=== PATIENT | female | born 1990 | race American Indian/Alaskan Native ===

== ENCOUNTER 2018-10-13 07:12 | Inpatient (IN) | payer MEDICAID ==
[2018-10-11 10:57] LABS: Hematocrit 24.7 % (30.3-42.9); Hemoglobin 7.6 gm/dl (10.1-14.3); Mean Corpuscular HGB Conc 31 % (30-34); Mean Corpuscular Volume 77 fl (79-97); Red Blood Count 3.22 M/mm3 (3.65-5.03)
[2018-10-11 11:05] LABS: Red Cell Distribution Width 28.2 % (13.2-15.2)
--- NOTE | 2018-10-11 11:07 | Anesthesia Consultation ---
Anesthesia Consult and Med Hx Date of service: 10/11/18 - Airway Anesthetic Teeth Evaluation: Good ROM Head & Neck: Adequate Mental/Hyoid Distance: Inadequate Mallampati Class: Class II Intubation Access Assessment: Good - Pulmonary Exam CTA: Yes - Cardiac Exam Cardiac Exam: RRR - Pre-Operative Health Status ASA Pre-Surgery Classification: ASA1 Proposed Anesthetic Plan: General Nerve Block: TAP - Pulmonary Hx Smoking: Yes - Central Nervous System Hx Psychiatric Problems: No - Hematic Hx Anemia: Yes - Other Systems Hx Alcohol Use: Yes (Occas) Hx Cancer: No
[2018-10-11 13:49] LABS: Basophils % (Manual) 0 % (0.0-1.8); Total Cells Counted 100
[2018-10-11 13:50] LABS: Anisocytosis 3+; Dimorphic RBC Yes; Hypochromasia 1+
[2018-10-11 13:51] LABS: Platelet Estimate Consistent w Auto
[2018-10-11 14:01] LABS: Platelet Count 155 K/mm3 (140-440)
[2018-10-13] MEDS ORDERED: NACL 0.9% 500 ML 500 ML IV NR (09:41)
--- NOTE | 2018-10-13 09:41 | History and Physical Report ---
History of Present Illness Date of examination: 10/13/18 Date of admission: 10/13/18 09:06 Chief complaint: Symptomatic uterine fibroids History of present illness: 27-year-old 011 with a history of symptomatic uterine fibroids. The patient reports a history of abnormal uterine bleeding with significant pain and discomfort during her menses. Pelvic ultrasound has demonstrated findings of a fundal leiomyoma measuring 9.1 cm. The patient desires to preserve her fertility. She has elected to undergo a myomectomy. 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 Social history: single - Obstetrical History : 2 Para: 1 Hx # Term Pregnancies: 1 Number of Pregnancies: 0 Spontaneous Abortions: 1 Induced : 0 Number of Living Children: 1 Medications and Allergies Allergies Allergy/AdvReac Type Severity Reaction Status Date / Time Sulfa (Sulfonamide Allergy Unknown Verified 10/08/18 12:14 Antibiotics) Home Medications Medication Instructions Recorded Confirmed Last Taken Type medroxyPROGESTERone ACETATE 10 mg PO DAILY 10/08/18 10/08/18 Unknown History [Medroxyprogesterone Acetate] Review of Systems All systems: negative Genitourinary: vaginal bleeding, pelvic pain - Vital Signs Vital signs: Vital Signs Temp Pulse Resp BP Pulse Ox 99 F 96 H 18 132/88 100 10/11/18 09:45 10/11/18 09:45 10/11/18 09:45 10/11/18 09:45 10/11/18 09:45 Temp Pulse Resp BP Pulse Ox 99 F 96 H 18 132/88 100 10/11/18 09:45 10/11/18 09:45 10/11/18 09:45 10/11/18 09:45 10/11/18 09:45 - Physical Exam Breasts: Positive: deferred Cardiovascular: Regular rate Lungs: Positive: Clear to auscultation Results Result Diagrams: 10/11/18 10:23 All other labs normal. Assessment and Plan - Patient Problems (1) Leiomyoma Current Visit: Yes Status: Acute Plan to address problem: Proceed with an exploratory laparotomy and myomectomy (2) Menorrhagia Current Visit: Yes Status: Acute (3) Dysmenorrhea Current Visit: Yes Status: Acute
[2018-10-13] MEDS ORDERED: SUBLIMAZE IV NR (09:47)
[2018-10-13] MEDS ORDERED: ZOFRAN IV PRN (09:47)
[2018-10-13] MEDS ORDERED: SUBLIMAZE IV PRN (09:47)
[2018-10-13] MEDS ORDERED: TYLENOL PO NR ×2 (09:50→11:00)
--- NOTE | 2018-10-13 09:52 | Anesthesia Day of Surgery ---
Anesthesia Day of Surgery - Day of Surgery Patient Examined: Yes Patient H&P Reviewed: Yes Patient is NPO: Yes
[2018-10-13] MEDS ORDERED: VERSED IV NR (10:00)
[2018-10-13] MEDS ORDERED: LACTATED RINGERS 1,000 ML IV SCH (10:00)
[2018-10-13] MEDS ORDERED: ANCEF/STERILE WATER 2 GM/20 ML 2 GM/20 ML SYRINGE IV NR (10:00)
[2018-10-13] MEDS ORDERED: NEURONTIN PO NR ×2 (10:00→11:00)
[2018-10-13] MEDS ORDERED: NEURONTIN ONE (10:33)
[2018-10-13] MEDS ORDERED: TYLENOL ONE (10:34)
[2018-10-13] MEDS ORDERED: ACD-A 500 ML IV ONE (12:41)
[2018-10-13] MEDS ORDERED: NACL 0.9% 100 ML ONE (12:42)
[2018-10-13] MEDS ORDERED: Vasostrict ONE (12:42)
[2018-10-13] MEDS ORDERED: VERSED ONE (13:01)
[2018-10-13] MEDS ORDERED: DIPRIVAN 10 MG/ML IV ONE (13:05)
[2018-10-13] MEDS ORDERED: SUBLIMAZE ONE ×3 (13:06→14:54)
[2018-10-13] MEDS ORDERED: XYLOCAINE MPF 2% ONE (13:51)
[2018-10-13] MEDS ORDERED: ZEMURON IV ONE (13:51)
[2018-10-13] MEDS ORDERED: BLOXIVERZ ONE (13:51)
[2018-10-13] MEDS ORDERED: ZOFRAN ONE (13:51)
[2018-10-13] MEDS ORDERED: DECADRON ONE (13:51)
[2018-10-13] MEDS ORDERED: ROBINUL ONE (13:51)
[2018-10-13] MEDS ORDERED: NACL 0.9% IR ONE (13:59)
[2018-10-13] MEDS ORDERED: Vasostrict IM ONE (13:59)
[2018-10-13] MEDS ORDERED: ACD-A IV ONE (13:59)
[2018-10-13] MEDS ORDERED: NACL 0.9% IV ONE (14:00)
--- NOTE | 2018-10-13 14:45 | Operative Report ---
Operative Report Operative Report: Date of procedure: 10/13/2018 Pre-operative diagnosis: Symptomatic uterine fibroid; menorrhagia; anemia Post-operative diagnosis: Same as above Procedure name(s): Exploratory laparotomy; myomectomy Surgeon: Edyta Bell MD Train Gate Attendant: Ronit Rubio Anesthesia: Gen. Endotracheal anesthesia Estimated blood loss: 150 mL Indication: 27-year-old with a history of significant menorrhagia as a result a Dawson a myoma. The patient's anemia subsequently led her to having a transfusion of blood products. The patient received 2 units of packed red blood cells preoperatively. Findings Fibroid uterus with a solitary leiomyoma measuring approximately 9 cm Procedure The patient was taken to the operating room and placed under general anesthesia without complication. The patient was prepped and draped in a normal sterile fashion. A Pfannenstiel skin incision was made down to the layer of the fascia was nicked in the midline and extended laterally with the Bovie cautery. The superior aspect of the rectus fascia was grasped Kocur clamps 2 and the rectus muscles off sharply. This was done inferior fashion as well. Rectus muscle in the midline and the peritoneal peritoneum entered bluntly. On inspection of the pelvis there was evidence of an enlarged uterus significant with findings of a leiomyoma. The tubes and ovaries were normal in appearance. Towel clamp was placed on the leiomyoma and the uterus was elevated out of the pelvis. Warm laparotomy sponges were placed along the base of the uterus. The leiomyoma was injected with diluted Pitressin. A vertical serosal incision was made on the anterior aspect of the uterus from the fundus to the lower uterine segment. The leiomyoma was grasped with a towel clamp. The myometrium and connective tissue were excised from the leiomyoma with blunt and sharp dissection. The leiomyoma was then removed from the uterine body. The cavitary defect was closed with 0 Vicryl suture in a running locked fashion. Multiple layers reapproximated until the myometrial defect was collapsed. The serosa was reapproximated in a running locked fashion with 0 Vicryl. Copious irrigation of pelvis was performed. The uterus was replaced back into the pelvis. Hemoblast was applied to the surgical site. The peritoneum was then reapproximated with 3-0 Vicryl in a running fashion. The fascia was then closed in a running fashion with 0 Vicryl. The skin was reapproximated with 4-0 Monocryl in a subcuticular fashion. All sponge laps and needle counts were correct 2. Specimen sent to pathology was leiomyoma. Patient was then successfully extubated taken to the recovery room in stable condition.
[2018-10-13] MEDS ORDERED: TYLENOL PO PRN (15:00)
[2018-10-13] MEDS ORDERED: MILK OF MAGNESIA PO PRN (15:00)
[2018-10-13] MEDS ORDERED: IBUPROFEN PO PRN (15:00)
[2018-10-13] MEDS: DILAUDID IV PRN ×4 (15:10→15:55)
[2018-10-13] MEDS ORDERED: VALIUM IV ONE (15:29)
[2018-10-13] MEDS: D5LR 1,000 ML IV SCH (17:21)
[2018-10-13] MEDS: TORADOL IV SCH (18:32)
[2018-10-13] MEDS ORDERED: NACL 0.9% 500 ML 500 ML ONE (19:02)
--- NOTE | 2018-10-13 19:07 | Post Anesthesia Evaluation ---
- Post Anesthesia Evaluation Patient Participated: Yes Airway Patent: Yes Stable Respiratory Function: Yes Nausea/Vomiting: No Temp > 96.8F: Yes Pain Manageable: Yes Adequeate Hydration: Yes Anesthesia Complications: No Block Receding Appropriately: Not Applicable Patient on Ventilator: No
[2018-10-13] MEDS: MORPHINE IV PRN (19:14)
[2018-10-13] MEDS: PERCOCET 5/325 PO PRN (21:30)
[2018-10-13] MEDS ORDERED: AMBIEN PO PRN (22:00)
[2018-10-14] MEDS: TORADOL IV SCH ×5 (00:22→23:58)
[2018-10-14] MEDS: D5LR 1,000 ML IV SCH (04:08)
[2018-10-14 04:29] LABS: Hemoglobin 9.4 gm/dl (10.1-14.3)
[2018-10-14] MEDS: MORPHINE IV PRN (04:32)
--- NOTE | 2018-10-14 08:21 | Progress Note ---
Assessment and Plan - Patient Problems (1) Leiomyoma Current Visit: Yes Status: Acute Plan to address problem: patient doing well routine postop (2) Menorrhagia Current Visit: Yes Status: Acute (3) Dysmenorrhea Current Visit: Yes Status: Acute Subjective - Subjective Date of service: 10/14/18 Interval history: Patient is tolerating clears. Discussed details of surgery. Has not ambulated yet Patient reports: pain well controlled, no flatus Objective - Vital Signs Latest vital signs: Vital Signs Temp Pulse Resp BP Pulse Ox 10/14/18 04:51 97.9 F 82 151/81 99 10/14/18 04:45 20 10/13/18 23:27 83 99 10/13/18 23:26 97.8 F 88 20 158/98 98 10/13/18 20:40 98.1 F 89 18 160/90 99 10/13/18 20:35 98.1 F 79 18 160/93 100 10/13/18 20:07 98.5 F 80 18 156/88 100 10/13/18 19:37 99.1 F 83 18 159/84 99 10/13/18 19:28 98.5 F 88 18 173/92 100 10/13/18 19:22 98.2 F 83 18 143/83 10/13/18 18:55 98.2 F 100 H 20 143/83 100 10/13/18 16:39 97.8 F 20 153/56 10/13/18 16:00 70 16 125/56 99 10/13/18 15:45 97.5 F L 77 16 128/61 100 10/13/18 15:30 78 20 126/58 100 10/13/18 15:15 85 20 139/70 100 10/13/18 15:05 86 22 137/55 100 10/13/18 15:00 81 20 127/49 100 10/13/18 14:56 97.6 F 95 H 20 128/63 100 10/13/18 14:13 18 10/13/18 12:35 99.3 F 101 H 20 142/101 100 10/13/18 12:20 91 H 18 149/88 98 10/13/18 12:00 93 H 18 146/75 99 10/13/18 10:30 18 10/13/18 09:45 98.3 F 87 20 151/81 99 10/13/18 09:25 98.3 F 87 18 151/81 99 Intake and Output 10/13/18 10/14/18 10/14/18 22:59 06:59 14:59 Intake Total 620 1360 Output Total 380 875 Balance 240 485 Intake: IV 1000 D5lr 1,000 ml @ 125 mls/ 1000 hr IV DIRECT KAISRE Rx#: [id number] Oral 120 360 Blood Product 500 Leukoreduced Red Blood 250 Cells Unit [id number] Leukoreduced Red Blood 250 Cells Unit [id number] Output: Urine 380 875 Indwelling Catheter 200 875 Other: Total, Intake Amount 120 120 Total, Output Amount 200 75 - Exam Cardiovascular: Present: Regular rate Abdomen: Present: normal appearance Incision: Present: normal, dry - Labs Labs: Abnormal lab results 10/13/18 10/14/18 Range/Units 10:08 04:20 Hgb 9.4 L (10.1-14.3) gm/dl Hct 30.0 L (30.3-42.9) % Crossmatch See Detail
[2018-10-14] MEDS: PERCOCET 5/325 PO PRN ×3 (08:36→21:57)
[2018-10-14] MEDS ORDERED: MYLICON PO PRN (12:06)
[2018-10-15] MEDS: TORADOL IV SCH ×2 (03:14→09:01)
[2018-10-15] MEDS ORDERED: ZOFRAN IV ONE (03:30)
[2018-10-15 09:22] VITALS: BP 146/78
--- NOTE | 2018-10-15 10:28 | Progress Note ---
Assessment and Plan - Patient Problems (1) Leiomyoma Current Visit: Yes Status: Acute Plan to address problem: patient doing well discharge home (2) Menorrhagia Current Visit: Yes Status: Acute (3) Dysmenorrhea Current Visit: Yes Status: Acute Subjective - Subjective Date of service: 10/15/18 Interval history: Patient is tolerating regular diet. Pain is better controlled Patient reports: appetite normal, voiding normally, pain well controlled Objective - Vital Signs Latest vital signs: Vital Signs Temp Pulse Pulse Resp BP Pulse Ox 10/15/18 07:56 97.6 F 83 16 146/78 98 10/15/18 04:43 98.5 F 76 20 149/67 97 10/15/18 03:44 18 10/15/18 03:14 18 10/14/18 23:58 18 10/14/18 23:41 98.5 F 76 20 127/59 99 10/14/18 22:57 18 10/14/18 21:57 18 10/14/18 20:03 98.5 F 79 20 169/70 97 10/14/18 20:00 85 18 10/14/18 15:54 97.9 F 97 H 16 157/76 100 10/14/18 12:06 97.7 F 77 20 147/73 96 Intake and Output 10/14/18 10/15/18 10/15/18 22:59 06:59 14:59 Intake Total 320 Output Total 500 Balance -180 Intake: Oral 320 Output: Urine 500 Void 500 Other: Total, Intake Amount 120 Total, Output Amount 500 Voiding Method Toilet Toilet # Voids 1 Void 1 1 Weight 81.64 kg - Exam Incision: Present: normal
--- NOTE | 2018-10-15 10:30 | Discharge Summary ---
Providers - Providers Date of Admission: 10/13/18 09:06 Date of discharge: 10/15/18 Attending physician: MICHAEL UNGER Primary care physician: [employer] Hospitalization Reason for admission: other (uterine fibroid) Procedure: other (myomectomy) Discharge diagnosis: other (fibroids) Hospital course: Patient admitted for a myomectomy. Received 2 units prbcs preop. See op note. Postop was routine Condition at discharge: Good Disposition: [id number] TO HOME OR SELFCARE - Discharge Diagnoses (1) Leiomyoma Status: Acute (2) Menorrhagia Status: Acute (3) Dysmenorrhea Status: Acute Plan - Discharge Medications Prescriptions: Ibuprofen [Motrin] 800 mg PO Q8HR PRN #60 tablet PRN Reason: Pain, Mild (1-3) Oxycodone HCl/Acetaminophen [Percocet 7.5/325 mg] 1 each PO Q6HR PRN #30 tablet PRN Reason: Pain - Provider Discharge Summary Activity: no sex for 6 weeks, no heavy lifting 4 weeks, no strenuous exercise Diet: routine Instructions: routine Additional instructions: [] Smoking cessation referral if applicable(refer to patient education folder for contact #) [] Refer to [facility]'s [facility] Booklet Call your doctor immediately for: * Fever > 100.5 * Heavy vaginal bleeding ( >1 pad per hour) * Severe persistent headache * Shortness of breath * Reddened, hot, painful area to leg or breast * Drainage or odor from incision. * Keep incision clean and dry at all times and follow doctor's instructions regarding bathing/showering schedule followup in 4 weeks - Follow up plan
== END 2018-10-15 11:25 | disposition home or self-care (01) | DRG 743 ==
LOC: 3A 09:06 → OB 15:24
PROVIDERS: ADMIT Obstetrics & Gynecology; ATTEND Obstetrics & Gynecology
PROC: 0UB90ZZ Excision of Uterus, Open Approach (ICD-10-PCS; principal; 2018-10-13)
PROC: 30233N1 Transfusion of Nonautologous Red Blood Cells into Peripheral Vein, Percutaneous Approach (ICD-10-PCS; 2018-10-13)
DX: D25.9 Leiomyoma of uterus, unspecified (principal); N92.0 Excessive and frequent menstruation with regular cycle; N94.6 Dysmenorrhea, unspecified; F17.200 Nicotine dependence, unspecified, uncomplicated; D64.9 Anemia, unspecified; Z88.2 Allergy status to sulfonamides; Z79.899 Other long term (current) drug therapy; Z72.89 Other problems related to lifestyle
CPT/HCPCS: 36415; 36430; 81025; 85007; 85014; 85018; 85025; 86850; 86900; 86901; 86920; 88305; G0378; J0690; J1100; J1170; J1885; J2250; J2270; J2405; J2704; J2710; J3010; J3360; J7040; J7120; J7121; P9016

== ENCOUNTER 2020-08-29 11:15 | Outpatient (CLI) | payer MEDICAID ==
[2020-08-29] MEDS ORDERED: LACTATED RINGERS 1,000 ML IV ONE (11:25)
[2020-08-29 11:45] VITALS: BP 137/80
[2020-08-29 13:21] LABS: Bilirubin,Urine NEG (Negative); Blood,Urine LG (Negative); Color,Urine Yellow (Yellow); Mucus,Urine 1+ /HPF; Urobilinogen,Urine < 2.0 mg/dL (<2.0)
== END 2020-08-29 12:57 | disposition home or self-care (01) ==
LOC: TRG 11:15 → APU 11:16 → TRG 12:57
PROVIDERS: ATTEND Obstetrics & Gynecology
DX: Z34.92 Encounter for supervision of normal pregnancy, unspecified, second trimester (principal); Z3A.26 26 weeks gestation of pregnancy
CPT/HCPCS: 59025; 81001

== ENCOUNTER 2020-10-15 07:15 | Outpatient (CLI) | payer MEDICAID ==
[2020-10-15 07:44] VITALS: BP 128/64
[2020-10-15 10:32] LABS: Bacteria,Urine 2+ /HPF (Negative); Bilirubin,Urine NEG (Negative); Blood,Urine NEG (Negative); Color,Urine Yellow (Yellow); Mucus,Urine FEW /HPF; Protein,Urine <15 mg/dL mg/dL (Negative); Urobilinogen,Urine < 2.0 mg/dL (<2.0)
[2020-10-15] MEDS ORDERED: TERBUTALINE 1 MG/1 ML INJ SUB-Q SCH (11:00)
== END 2020-10-15 11:15 | disposition home or self-care (01) ==
LOC: TRG 07:15 → APU 07:16 → TRG 11:15
PROVIDERS: ATTEND Obstetrics & Gynecology
DX: Z34.93 Encounter for supervision of normal pregnancy, unspecified, third trimester (principal); Z3A.33 33 weeks gestation of pregnancy
CPT/HCPCS: 59025; 81001

== ENCOUNTER 2020-11-16 11:30 | Inpatient (IN) | payer MEDICAID ==
[2020-11-23] MEDS ORDERED: dexAMETHasone 20 MG/5 ML VIAL ONE (09:57)
[2020-11-23] MEDS ORDERED: BUPIVACAINE/PF (0.5%) 5 MG/1 ML 30 ML VIAL INFILTRATI ONE (09:57)
[2020-11-23] MEDS ORDERED: KETOROLAC 30 MG/1 ML INJ ONE (09:57)
[2020-11-23] MEDS ORDERED: diphenhydrAMINE 50 MG/ML VIAL IV PRN (10:00)
[2020-11-23] MEDS ORDERED: HYDROmorphone 1 MG/1 ML INJ IV PRN (10:00)
[2020-11-23] MEDS ORDERED: PROMETHAZINE 25 MG RECT SUPP PR PRN (10:00)
[2020-11-23] MEDS ORDERED: NalbUPHINE 10 MG/1 ML INJ IV PRN (10:00)
[2020-11-23] MEDS ORDERED: PROMETHAZINE 25 MG TAB PO PRN (10:00)
[2020-11-23] MEDS ORDERED: NALOXONE 0.4 MG/1 ML INJ IV PRN ×2 (10:00→16:03)
[2020-11-23] MEDS ORDERED: ONDANSETRON 4 MG/2 ML INJ IV PRN (10:00)
[2020-11-23] MEDS ORDERED: LACTATED RINGERS 1,000 ML ONE ×3 (10:43→14:36)
[2020-11-23] MEDS ORDERED: LACTATED RINGERS 1,000 ML IV ONE ×3 (11:15→15:13)
[2020-11-23] MEDS ORDERED: FAMOTIDINE 20 MG/2 ML INJ IV ONE (11:15)
[2020-11-23] MEDS ORDERED: METOCLOPRAMIDE 10 MG/2 ML INJ IV ONE (11:15)
[2020-11-23] MEDS ORDERED: BICITRA ORAL LIQD 30ML PO ONE (11:30)
[2020-11-23 11:36] LABS: Basophils % (Auto) 0.2 % (0.0-1.8); Eosinophils % (Auto) 0.3 % (0.0-4.3); Hematocrit 37.5 % (30.3-42.9); Hemoglobin 12.3 gm/dl (10.1-14.3); Lymphocytes # (Auto) 1.4 K/mm3 (1.2-5.4); Lymphocytes % (Auto) 18.5 % (13.4-35.0); Mean Corpuscular HGB Conc 33 % (30-34); Mean Corpuscular Volume 82 fl (79-97); Monocytes # (Auto) 0.5 K/mm3 (0.0-0.8); Platelet Count 304 K/mm3 (140-440); Red Blood Count 4.58 M/mm3 (3.65-5.03); Red Cell Distribution Width 16.9 % (13.2-15.2)
--- NOTE | 2020-11-23 12:04 | History and Physical Report ---
History of Present Illness Date of examination: 11/23/20 Date of admission: 11/23/20 09:33 Chief complaint: Schedule History of present illness: 29-year-old -0-1-1 at 38+5 weeks who presents for primary delivery secondary to history of a prior myomectomy with entry into the uterine cavity. Recommended delivery prior to 39 weeks. The patient initiated her care in the first trimester of her . Her course is complicated by history of a prior myomectomy, large for gestational age fetus, obesity, and severe anxiety. Patient is GBS positive Past History Past Medical History: other (Anxiety) Past Surgical History: myomectomy Social history: single - Obstetrical History Expected Date of Delivery: 12/02/20 Actual Gestation: 38 Week(s) 5 Day(s) : 3 Para: 1 Hx # Term Pregnancies: 1 Number of Pregnancies: 0 Spontaneous Abortions: 1 Induced : 0 Number of Living Children: 1 Medications and Allergies Allergies Allergy/AdvReac Type Severity Reaction Status Date / Time Sulfa (Sulfonamide Allergy Unknown Verified 10/08/18 12:14 Antibiotics) Home Medications Medication Instructions Recorded Confirmed Last Taken Type [facility] Vitamins Tablet 1 tab PO DAILY 11/23/20 11/23/20 11/21/20 History 1 Active Meds: Active Medications Diphenhydramine HCl (Diphenhydramine 50 Mg/Ml Vial) 12.5 mg IV Q2H PRN PRN Reason: Itching Hydromorphone HCl (Hydromorphone 1 Mg/1 Ml Inj) 0.5 mg IV Q4H PRN PRN Reason: breakthrough pain > 7/10 Lactated Ringer's (Lactated Ringers) 1,000 mls @ 999 mls/hr IV BOLUS ONE Stop: 11/23/20 12:15 Nalbuphine HCl (Nalbuphine 10 Mg/1 Ml Inj) 2.5 mg IV Q2H PRN PRN Reason: Itching Naloxone HCl (Naloxone 0.4 Mg/1 Ml Inj) 0.2 mg IV Q2MIN PRN PRN Reason: Res Rate </= 8 or 02 SAT < 92% Ondansetron HCl (Ondansetron 4 Mg/2 Ml Inj) 4 mg IV Q8H PRN PRN Reason: Nausea And Vomiting Promethazine HCl (Promethazine 25 Mg Tab) 25 mg PO Q6H PRN PRN Reason: Nausea And Vomiting Promethazine HCl (Promethazine 25 Mg Rect Supp) 25 mg MO Q6H PRN PRN Reason: Nausea And Vomiting Review of Systems All systems: negative Genitourinary: no leakage of fluid, no contractions - Vital Signs Vital signs: Vital Signs Pulse Pulse Ox 92 H 98 11/23/20 10:17 11/23/20 10:17 Temp Pulse Resp BP Pulse Ox 98.2 F 103 H 18 144/86 99 11/23/20 11:22 11/23/20 11:42 11/23/20 11:22 11/23/20 11:00 11/23/20 11:42 - Physical Exam Breasts: Positive: deferred Cardiovascular: Regular rate Lungs: Positive: Clear to auscultation Abdomen: Positive: normal appearance Results Result Diagrams: 11/23/20 10:30 Abnormal lab results 11/23/20 Range/Units 10:30 MCH 27 L (28-32) pg RDW 16.9 H (13.2-15.2) % Seg Neutrophils % 74.0 H (40.0-70.0) % All other labs normal. Assessment and Plan - Patient Problems (1) History of myomectomy Current Visit: Yes Status: Acute Plan to address problem: Will proceed with a primary delivery
[2020-11-23] MEDS ORDERED: PHENYLEPHRINE/NS 1,000 MCG/10 ML SYRINGE (OR USE) IV ONE (12:10)
--- NOTE | 2020-11-23 12:35 | Anesthesia Day of Surgery ---
Anesthesia Day of Surgery - Day of Surgery Patient Examined: Yes Patient H&P Reviewed: Yes Patient is NPO: Yes Beta Blockers: No Cardiac Clearance: No Pulmonary Clearance: No Davion's Test: N/A
--- NOTE | 2020-11-23 12:36 | Anesthesia Consultation ---
Anesthesia Consult and Med Hx Date of service: 11/23/20 - Airway Anesthetic Teeth Evaluation: Good ROM Head & Neck: Adequate Mental/Hyoid Distance: Adequate Mallampati Class: Class III Intubation Access Assessment: Possibly Difficult - Pulmonary Exam CTA: Yes - Cardiac Exam Cardiac Exam: RRR - Pre-Operative Health Status ASA Pre-Surgery Classification: ASA2 Proposed Anesthetic Plan: Spinal Nerve Block: TAP - Pulmonary Hx Smoking: Yes Hx Asthma: No COPD: No Hx Pneumonia: No Hx Sleep Apnea: No - Cardiovascular System Hx Hypertension: No Hx Heart Attack/AMI: No Hx Angina: No - Central Nervous System Hx Seizures: No Hx Psychiatric Problems: No - Endocrine Hx Renal Disease: No Hx End Stage Renal Disease: No Hx Liver Disease: No Hx Insulin Dependent Diabetes: No Hx Non-Insulin Dependent Diabetes: No Hx Hypothyroidism: No Hx Hyperthyroidism: No - Hematic Hx Anemia: No Hx Sickle Cell Disease: No - Other Systems Hx Alcohol Use: No Hx Cancer: No Hx Obesity: Yes - Additional Comments Anesthesia Medical History Comments: H/O myomectomy
--- NOTE | 2020-11-23 12:41 | Progress Note ---
Spinal Anesthesia Block - Spinal Anesthesia Block Start Time: 12:03 Stop Time: 12:08 Performed by:: CORTES SAWYER ([facility]) Procedure: Spinal anesthesia block is being performed for [C/S]. H&P, labs have been reviewed. Patient's questions and concerns have been answered. Informed consent has been performed. Timeout has was performed. Patient in sitting position on side of bed. Sterile prep and drape was performed. 3 mL 1% lid ocaine skin wheal at L [3]-L [4]. Needle introducer advanced. 25-gauge spinal needle advanced, [+] CSF [-] blood. [Marcaine 10mg and Precedex 5mcg] Spinal dose was given. All needles removed. Patient tolerated procedure well.
[2020-11-23] MEDS ORDERED: MIDAZOLAM 2 MG/2 ML INJ ONE (12:47)
[2020-11-23] MEDS ORDERED: OXYTOCIN DRIP 30 UNITS/500 ML BAG IV SCH ×2 (13:00→16:03)
[2020-11-23] MEDS ORDERED: ONDANSETRON 4 MG/2 ML INJ ONE (13:00)
[2020-11-23] MEDS ORDERED: ceFAZolin/STERILE WATER 2 GM/20 ML SYRINGE IV NR (13:00)
--- NOTE | 2020-11-23 13:24 | Procedure Note ---
OB Delivery Note - Delivery Date of Delivery: 11/23/20 Surgeon: MICHAEL UNGER Estimated blood loss: other (qbl [id number]) - Section Preop diagnosis: other (Previous myomectomy) Postop diagnosis: same section procedure: section, primary low transverse Disposition: PACU Complications: other (Adhesive disease) - A at 1 minute: 8 at 5 minutes: 9 Gender: Male (Weight 7 pounds 8 ounces)
--- NOTE | 2020-11-23 13:35 | Operative Report ---
Operative Report Operative Report: Date of surgery: 11/23/2020 Preoperative diagnosis: at 38+5 weeks; previous myomectomy with endometrial entry; Postoperative diagnosis: Same as above; pelvic adhesions Procedure: Primary low transverse delivery; lysis of adhesions Surgeon: Edyta Bell M.D. Anesthesia: Regional Qbl:1273ml IV fluids: 1800 mL Urine output: 50 mL Indications: 29-year-old -0-1-1 at 38+5 weeks who presents for a primary delivery secondary to a history of myomectomy. Findings: Liveborn male with Apgars of 8 and 9 weight 7 pounds 8 ounces Procedure: The patient was taken to the operating room and given regional anesthesia without complication. She was prepped and draped in a normal sterile fashion. A Pfannenstiel skin incision was made down to layer the fascia which was nicked in the midline extended laterally with the Bovie cautery. The superior aspect of the rectus fascia was grasped with Dinah clamps x2 and the rectus muscles off sharply. This was done in inferior fashion as well. The rectus muscle midline and peritoneum entered bluntly with sharp dissection. The uterus was noted to be adherent to the anterior abdominal wall. Lysis of adhesions had to be performed to facilitate placement of the Saad retractor. The fetus was noted to not be engaged. An Saad retractor was then inserted. A bladder blade was placed. The vesicouterine peritoneum was then entered sharply with Metzenbaum scissors. A bladder flap was created digitally however was adherent. A low transverse uterine incision was then made and extended digitally. The lower uterine segment was noted to be significantly thickened and contractile. There was clear fluid upon entry into the uterine cavity. Multiple attempts were made to delivery the head but inhibited by the contractile nature of the undeveloped lower uterine segment. A Kiwi vacuum was applied but was complicated placement secondary to blood in the surgical field affecting adequate suction. The head was finally delivered through the incision with fundal pressure and assistance of the vacuum. The cord was clamped and cut x2 and was passed off to pediatrics. The placenta was then manually extracted. The uterus could not be exteriorized secondary to the multiple adhesions. The uterine incision was closed in situ. The uterine incision was then closed in a running locked fashion with 0 Vicryl additional imbricating stitch was applied for 2 layer closure. An additional third layer closure was performed for hemostasis. The posterior cul-de-sac was then copiously irrigated. The gutters were then irrigated. Surgicel was placed over the incision. The Saad retractor was then removed. The peritoneum was then reapproximated with 3-0 Vicryl incorporating the rectus muscle. The fascia was then closed with 0 Vicryl in a running fashion. The skin was then reapproximated with 3-0 Monocryl on a Yony needle subcuticular fashion. Steri-Strips to place across the incision and a Crede procedures performed at the end of the surgery. A pressure dressing was applied to the incision. The surgery productive of a liveborn male with Apgars of 8 and 9 weight 7 pounds 8 ounces. The patient was taken to the recovery room in sta ble condition. All sponge laps and needle counts correct x2.
[2020-11-23] MEDS ORDERED: WITCH HAZEL/ GLYCERIN PAD TP PRN (16:03)
[2020-11-23] MEDS ORDERED: D5W/LACTATED RINGERS 1,000 ML IV SCH (16:03)
[2020-11-23] MEDS ORDERED: SIMETHICONE 80 MG CHEW TAB PO PRN (16:03)
[2020-11-23] MEDS ORDERED: IBUPROFEN 600 MG TAB PO PRN (16:03)
[2020-11-23] MEDS ORDERED: LANOLIN/ZINC/DIMETHICONE (LANSINOH) 7 GM TP PRN (16:03)
[2020-11-23] MEDS ORDERED: ACETAMINOPHEN 325 MG TAB PO PRN (16:03)
[2020-11-23] MEDS: MORPHINE 4 MG/1 ML INJ IV PRN (17:31)
[2020-11-23] MEDS: KETOROLAC 30 MG/1 ML INJ IV PRN (20:23)
[2020-11-24] MEDS: MORPHINE 4 MG/1 ML INJ IV PRN ×2 (00:03→17:55)
[2020-11-24] MEDS: oxyCODONE /ACETAMINOPHEN 5-325MG TAB PO PRN ×3 (03:03→16:02)
[2020-11-24] MEDS: KETOROLAC 30 MG/1 ML INJ IV PRN ×2 (04:46→20:25)
[2020-11-24 07:59] LABS: Hematocrit 26.5 % (30.3-42.9); Hemoglobin 8.9 gm/dl (10.1-14.3)
[2020-11-24] MEDS: FERROUS SULFATE 325 MG TAB PO SCH (10:56)
--- NOTE | 2020-11-24 15:10 | Progress Note ---
Assessment and Plan - Patient Problems (1) Status post primary low transverse section Current Visit: Yes Status: Acute Plan to address problem: Continue routine PP orders Keep dressing clean and dry, remove on POD#2 Anticipate d/c home in 24-48 hrs if stable (2) Anemia Current Visit: Yes Status: Acute Qualifiers: Anemia type: other cause Other causes of anemia: acute posthemorrhagic Qualified Code(s): D62 - Acute posthemorrhagic anemia Plan to address problem: Asymptomatic Increase iron rich foods into diet Continue daily oral iron supplementation as directed Subjective - Subjective Date of service: 11/24/20 Principal diagnosis: S/P primary C/S; POD#1 Interval history: 29-year-old -0-1-1 at 38+5 weeks who presents for primary delivery secondary to history of a prior myomectomy with entry into the uterine cavity. Recommended delivery prior to 39 weeks. The patient initiated her care in the first trimester of her . Her course is complicated by history of a prior myomectomy, large for gestational age fetus, obesity, and severe anxiety. Patient is GBS positive Patient reports: appetite normal, voiding normally, pain well controlled (with medications), flatus, ambulating normally, no bowel movement Lolita: doing well, bottle feeding (and ) Objective - Vital Signs Latest vital signs: Vital Signs Temp Pulse Resp BP BP Pulse Ox Pulse Ox 11/24/20 11:50 97.9 F 76 18 125/70 98 11/24/20 08:45 97 11/24/20 08:02 97.9 F 18 125/78 11/24/20 05:15 97 11/24/20 04:46 18 97 11/24/20 04:41 97.5 F L 89 20 132/79 97 11/24/20 04:00 99 11/24/20 03:03 18 99 11/24/20 01:30 98.1 F 75 20 127/61 96 11/24/20 00:30 100 11/24/20 00:03 18 99 11/23/20 20:54 98.2 F 87 20 150/72 97 11/23/20 20:50 99 11/23/20 20:23 18 99 11/23/20 19:30 100 11/23/20 15:40 97.5 F L 85 18 110/69 100 98 11/23/20 15:16 80 17 108/54 98 11/23/20 15:14 75 17 104/57 99 Intake and Output 11/23/20 11/24/20 11/24/20 23:59 07:59 15:59 Intake Total 300 200 720 Output Total 1800 1400 600 Balance -1500 -1200 120 Intake: Oral 300 200 720 Output: Urine 1800 1400 600 Indwelling Catheter 900 600 Ureteral 900 600 Void 200 600 Other: Total, Intake Amount 200 200 360 Total, Output Amount 600 200 600 - Exam Breasts: Present: normal Cardiovascular: Present: Regular rate Lungs: Present: Normal air movement Abdomen: Present: soft, tenderness Uterus: Present: firm, fundal height below umbilicus (U-2) Extremities: Present: normal Deep Tendon Reflex Grade: Normal +2 Incision: Present: dressed (no shadow drainage or bleeding noted) - Labs Labs: Abnormal lab results 11/24/20 Range/Units 07:21 Hgb 8.9 L D (10.1-14.3) gm/dl Hct 26.5 L D (30.3-42.9) %
[2020-11-25] MEDS: oxyCODONE /ACETAMINOPHEN 5-325MG TAB PO PRN ×4 (00:08→17:11)
--- NOTE | 2020-11-25 04:53 | Discharge Summary ---
Providers - Providers Date of Admission: 11/23/20 09:33 Date of discharge: 11/25/20 Attending physician: MICHAEL UNGER Primary care physician: MICHAEL UNGER Hospitalization Reason for admission: section Delivery: Procedure: primary low transverse Episiotomy: none Laceration: none Incision: dry, intact (no drainage or bleeding noted) Other procedures: none complications: none Discharge diagnosis: IUP at term delivered [place] baby: male Hospital course: 29-year-old -0-1-1 at 38+5 weeks who presents for primary delivery secondary to history of a prior myomectomy with entry into the uterine cavity. Recommended delivery prior to 39 weeks. The patient initiated her care in the first trimester of her . Her course is complicated by history of a prior myomectomy, large for gestational age fetus, obesity, and severe anxiety. Patient is GBS positive Patient reports: appetite normal, voiding normally, pain well controlled (with medications), flatus, ambulating normally, no bowel movement [place]: doing well, bottle feeding (and ) Condition at discharge: Stable Disposition: 01 HOME / SELF CARE / HOMELESS - Discharge Diagnoses (1) Status post primary low transverse section Status: Acute (2) Anemia Status: Acute Qualifiers: Anemia type: other cause Other causes of anemia: acute posthemorrhagic Qualified Code(s): D62 - Acute posthemorrhagic anemia Plan - Discharge Medications Prescriptions: Ibuprofen [Motrin] 800 mg PO Q8HR PRN #60 tablet PRN Reason: Pain , Severe (7-10) oxyCODONE /ACETAMINOPHEN [Percocet 5/325] 1 tab PO Q6HR PRN #30 tablet PRN Reason: Pain - Provider Discharge Summary Activity: routine, no sex for 6 weeks, no heavy lifting 4 weeks, no strenuous exercise Diet: other (Iron rich diet) Instructions: routine Additional instructions: [] Smoking cessation referral if applicable(refer to patient education folder for contact #) [] Refer to [facility] Booklet Call your doctor immediately for: * Fever > 100.5 * Heavy vaginal bleeding ( >1 pad per hour) * Severe persistent headache * Shortness of breath * Reddened, hot, painful area to leg or breast * Drainage or odor from incision. * Keep incision clean and dry at all times and follow doctor's instructions regarding bathing/showering - Follow up plan Follow up: MICHAEL UNGER MD [Primary Care Provider] - 14 Days
[2020-11-25] MEDS: FERROUS SULFATE 325 MG TAB PO SCH (10:00)
--- NOTE | 2020-11-25 12:10 | Post Anesthesia Evaluation ---
- Post Anesthesia Evaluation Patient Participated: Yes Airway Patent: Yes Stable Respiratory Function: Yes Nausea/Vomiting: No Temp > 96.8F: Yes Pain Manageable: Yes Adequeate Hydration: Yes Anesthesia Complications: No Block Receding Appropriately: Yes Patient on Ventilator: No
[2020-11-25 17:06] VITALS: BP 123/63
== END 2020-11-25 22:30 | disposition home or self-care (01) | DRG 765 ==
LOC: APU 11-23 09:33 → OB 11-23 16:26
PROVIDERS: ADMIT Obstetrics & Gynecology; ATTEND Obstetrics & Gynecology
PROC: 10D00Z1 Extraction of Products of Conception, Low, Open Approach (ICD-10-PCS; principal; 2020-11-23)
DX: O99.824 Streptococcus B carrier state complicating childbirth (principal); D62 Acute posthemorrhagic anemia; O99.892 Other specified diseases and conditions complicating childbirth; O90.81 Anemia of the puerperium; N73.6 Female pelvic peritoneal adhesions (postinfective); O99.214 Obesity complicating childbirth; O99.344 Other mental disorders complicating childbirth; F41.9 Anxiety disorder, unspecified; Z3A.38 38 weeks gestation of pregnancy; Z37.0 Single live birth
CPT/HCPCS: 36415; 85014; 85018; 85025; 86592; 86850; 86900; 86901; G0378; J1100; J1885; J2250; J2270; J2370; J2405; J2765; J3490; J7120; J7121; U0003

== ENCOUNTER 2021-07-10 00:06 | Emergency (ER) | payer MEDICAID ==
[2021-07-10 01:48] LABS: Basophils % (Auto) 0.6 % (0.0-1.8); Eosinophils # (Auto) 0.1 K/mm3 (0.0-0.4); Eosinophils % (Auto) 1.4 % (0.0-4.3); Hematocrit 35.8 % (30.3-42.9); Hemoglobin 11.4 gm/dl (10.1-14.3); Lymphocytes # (Auto) 1.5 K/mm3 (1.2-5.4); Lymphocytes % (Auto) 17.1 % (13.4-35.0); Mean Corpuscular HGB Conc 32 % (30-34); Mean Corpuscular Volume 76 fl (79-97); Monocytes # (Auto) 0.4 K/mm3 (0.0-0.8); Platelet Count 413 K/mm3 (140-440); Red Blood Count 4.71 M/mm3 (3.65-5.03); Red Cell Distribution Width 16.5 % (13.2-15.2)
[2021-07-10] MEDS ORDERED: ACETAMINOPHEN 500 MG TAB PO ONE (01:54)
[2021-07-10 02:11] LABS: Alanine Aminotransferase 17 units/L (7-56); Albumin 4.4 g/dL (3.9-5); Blood Urea Nitrogen 15 mg/dL (7-17); Calcium 9.7 mg/dL (8.4-10.2); Hemolysis Index 5
[2021-07-10 02:15] LABS: BUN/Creatinine Ratio 25
[2021-07-10 03:08] LABS: Bacteria,Urine 1+ /HPF (Negative); Mucus,Urine 3+ /HPF
[2021-07-10 03:25] LABS: Bilirubin,Urine NEG (Negative); Blood,Urine MOD (Negative); Color,Urine Yellow (Yellow); Protein,Urine <15 mg/dL mg/dL (Negative); Urobilinogen,Urine < 2.0 mg/dL (<2.0)
[2021-07-10] MEDS ORDERED: LIDOCAINE-MPF (1%) 10 MG/1 ML VIAL 5 ML INFILTRATI ONE (04:21)
--- NOTE | 2021-07-10 04:21 | Ultrasound Report ---
PELVIC ULTRASOUND INDICATION: vaginal bleeding, pelvic pain, approx 5 weeks gest COMPARISON: None pertinent available TECHNIQUE: Transabdominal FINDINGS: Uterus: Measures 11 x 5.5 x 6.2 cm. It measures stripe measures 14 mm in the upper end of the normal range. No intrauterine gestational sac is seen. No significant intrauterine fluid is noted. No focal uterine lesions are seen. Right ovary: Measures 2.7 cm and shows no abnormalities. Flow is noted. No adnexal masses are seen. Left ovary: Measures 4.3 cm and shows no abnormalities. Flow is noted. No adnexal masses are seen. Free fluid: None IMPRESSION: I cannot confirm an intrauterine . I do not have strong evidence of ectopic preg kar though that cannot be excluded. Clinical correlation and follow-up are needed. Signer Name: Curtis Mascorro MD Signed: 07/10/2021 4:17 AM Workstation Name: [id number]
--- NOTE | 2021-07-10 04:42 | Emergency Department Report ---
ED Female HPI - General Chief complaint: Vaginal Bleeding Stated complaint: VAGINAL BLEED Source: patient, EMS Mode of arrival: Stretcher Limitations: No Limitations - History of Present Illness Initial comments: Patient is a A1 30-year-old -[place] female who is approximately 5 weeks gestation presents to the ED with complaint of acute onset persistent vaginal spotting and bleeding and suprapubic pain for the last 2 days intermittently, worse in the last 8 hours. Patient also complains of persistent headache. Patient states that her LMP was June 03. Patient denies dizziness, syncope, chest pain or shortness of breath, dysuria, urinary frequency and urg ency, nausea and vomiting, fever, chills, diarrhea, low back pain, vaginal discharge, sore throat, traumatic injury or dyspareunia. MD Complaint: vaginal bleeding, pelvic pain -: Sudden, days(s) (2) Location: suprapubic, other (vaginal) Radiation: non-radiating Severity: moderate Severity scale (0 -10): 4 Quality: cramping, aching Consistency: intermittent Improves with: none Worsens with: movement Are you Now?: Yes (approx 5 weeks gestation) Associated Symptoms: denies other symptoms, vaginal bleeding, abdominal pain (Suprapubic pain). denies: vaginal discharge, nausea/vomiting, fever/chills, headaches, loss of appetite, dysuria, hematuria, rash, seizure, shortness of breath, syncope, weakness - Related Data Sexually active: Yes : 4 Para: 2 A: 1 Home Medications Medication Instructions Recorded Confirmed Last Taken [facility] Tablet 1 tab PO DAILY 11/23/20 11/23/20 11/21/20 1 Previous Rx's Medication Instructions Recorded Last Taken Type Ibuprofen [Motrin] 800 mg PO Q8HR PRN #60 tablet 11/23/20 Unknown Rx oxyCODONE /ACETAMINOPHEN [Percocet 1 tab PO Q6HR PRN #30 tablet 11/23/20 Unknown Rx 5/325] Acetaminophen [Tylenol] 500 mg PO Q6HR PRN #30 tablet 07/10/21 Unknown Rx NIFEdipine [Nifedipine ER] 60 mg PO DAILY #30 tab 07/10/21 Unknown Rx cephALEXin [Keflex] 500 mg PO Q8HR #30 cap 07/10/21 Unknown Rx Allergies Allergy/AdvReac Type Severity Reaction Status Date / Time Sulfa (Sulfonamide Allergy Unknown Verified 10/08/18 12:14 Antibiotics) ED Review of Systems ROS: Stated complaint: VAGINAL BLEED Other details as noted in HPI Constitutional: denies: chills, fever Eyes: denies: eye pain, eye discharge, vision change ENT: denies: ear pain, throat pain Respiratory: denies: cough, shortness of breath, wheezing Cardiovascular: denies: chest pain, palpitations Endocrine: no symptoms reported Gastrointestinal: abdominal pain (Suprapubic pain). denies: nausea, vomiting, diarrhea Genitourinary: abnormal menses (Vaginal bleeding). denies: urgency, dysuria, discharge Musculoskeletal: denies: back pain, joint swelling, arthralgia Skin: denies: rash, lesions Neurological: headache (Headache). denies: weakness, paresthesias Psychiatric: denies: anxiety, depression Hematological/Lymphatic: denies: easy bleeding, easy bruising ED Past Medical Hx - Past Medical History Previous Medical History?: No Hx Hypertension: No Hx Heart Attack/AMI: No Hx Congestive Heart Failure: No Hx Diabetes: No Hx Deep Vein Thrombosis: No Hx Liver Disease: No Hx Renal Disease: No Hx Sickle Cell Disease: No Hx Seizures: No Hx Asthma: No Hx COPD: No Hx HIV: No - Surgical History Past Surgical History?: Yes Additional Surgical History: myomectomy, c scetionx1 - Social History Smoking Status: Former Smoker - Medications Home Medications: Home Medications Medication Instructions Recorded Confirmed Last Taken Type [facility] Vit[facility] Tablet 1 tab PO DAILY 11/23/20 11/23/20 11/21/20 History 1 Ibuprofen [Motrin] 800 mg PO Q8HR PRN #60 tablet 11/23/20 Unknown Rx oxyCODONE /ACETAMINOPHEN [Percocet 1 tab PO Q6HR PRN #30 tablet 11/23/20 Unknown Rx 5/325] Acetaminophen [Tylenol] 500 mg PO Q6HR PRN #30 tablet 07/10/21 Unknown Rx NIFEdipine [Nifedipine ER] 60 mg PO DAILY #30 tab 07/10/21 Unknown Rx cephALEXin [Keflex] 500 mg PO Q8HR #30 cap 07/10/21 Unknown Rx ED Physical Exam - General Limitations: No Limitations General appearance: alert, in no apparent distress - Head Head exam: Present: atraumatic, normocephalic, normal inspection - Eye Eye exam: Present: normal appearance, PERRL, EOMI Pupils: Present: normal accommodation - ENT ENT exam: Present: normal exam, normal orophraynx, mucous membranes moist, TM's normal bilaterally, normal external ear exam - Neck Neck exam: Present: normal inspection, full ROM. Absent: tenderness - Respiratory Respiratory exam: Present: normal lung sounds bilaterally. Absent: respiratory distress, wheezes, rales, rhonchi, chest wall tenderness, accessory muscle use, decreased breath sounds, other - Cardiovascular Cardiovascular Exam: Present: regular rate, normal rhythm, normal heart sounds. Absent: systolic murmur, diastolic murmur, rubs, gallop - GI/Abdominal GI/Abdominal exam: Present: soft, tenderness (Palpable suprapubic tenderness), normal bowel sounds. Absent: guarding, rebound, hyperactive bowel sounds, hypoactive bowel sounds, organomegaly - Bi-manual exam: Present: other (Pelvic exam deferred at this time) - Extremities Exam Extremities exam: Present: normal inspection, full ROM, normal capillary refill. Absent: tenderness - Back Exam Back exam: Present: normal inspection, full ROM. Absent: tenderness, CVA tenderness (R), CVA tenderness (L), muscle spasm, vertebral tenderness - Neurological Exam Neurological exam: Present: alert, oriented X3, CN II-XII intact, normal gait, reflexes normal - Psychiatric Psychiatric exam: Present: normal affect, normal mood - Skin Skin exam: Present: warm, dry, intact, normal color. Absent: rash ED Course Vital Signs 07/10/21 01:28 Temperature 98.2 F Pulse Rate 84 Respiratory 18 Rate Blood Pressure 191/90 [Left] O2 Sat by Pulse 100 Oximetry ED Medical Decision Making - Lab Data Result diagrams: 07/10/21 01:30 07/10/21 01:30 - Radiology Data [facility] [address] [place] [address] Ultrasound Report Signed Patient: ROBERT DAVID MR#: [id number] : 1990 Acct:[id number] Age/Sex: 30 / F ADM Date: 07/10/21 Loc: ED Attending Dr: Ordering Physician: LAWRENCE SPRAGUE Date of Service: 07/10/21 Procedure(s): US OB <= 14 weeks fetus Accession Number(s): [id number] cc: LAWRENCE SPRAGUE PELVIC ULTRASOUND INDICATION: vaginal bleeding, pelvic pain, approx 5 weeks gest COMPARISON: None pertinent available TECHNIQUE: Transabdominal FINDINGS: Uterus: Measures 11 x 5.5 x 6.2 cm. It measures stripe measures 14 mm in the upper end of the normal range. No intrauterine gestational sac is seen. No significant i ntrauterine fluid is noted. No focal uterine lesions are seen. Right ovary: Measures 2.7 cm and shows no abnormalities. Flow is noted. No adnexal masses are seen. Left ovary: Measures 4.3 cm and shows no abnormalities. Flow is noted. No adnexal masses are seen. Free fluid: None IMPRESSION: I cannot confirm an intrauterine . I do not have strong evidence of ectopic though that cannot be excluded. Clinical correlation and follow-up are needed. Signer Name: Curtis Mascorro MD Signed: 07/10/2021 4:17 AM Workstation Name: [id number] Transcribed By: GJ Dictated By: Curtis Mascorro MD Electronically Authenticated By: Curtis Mascorro MD Signed Date/Time: 07/10/21416 DD/ 3 TD/TT: - Medical Decision Making This is a A1 30-year-old -[place] female who is approximately 5 weeks gestation presents to the ED with complaint of acute onset persistent vaginal spotting and bleeding and suprapubic pain for the last 2 days intermittently, worse in the last 8 hours. Patient also complains of persistent headache. Patient states that her LMP was June 03. In the ED, patient is alert and oriented x3 and is not in any distress but hypertensive in triage. Lab test results were reviewed and showed mild acute hyponatremia 134 mmol/L and hCG quant of 1671, and urinalysis showed significant urinary tract infection. Transvaginal ultrasound showed no actual intrauterine . I do not have strong evidence of ectopic though that cannot be excluded. Clinical correlation and follow-up are needed. Patient's may be too early to characterize on ultrasound at this time although the hCG quant is slightly above the threshold for identification of intrauterine . Patient was treated for pain in the ED and also received Rocephin 1 g intramuscular injection for acute urinary tract infection. Patient was discharged home on antibiotics and advised to take Tylenol as needed for pain. Patient was also advised to return to the ED or follow-up with her [employer] [employer] physician in 5 to 7 days for reevaluation. Patient was also advised to maintain a complete pelvic rest with no strenuous or physical activities. Patient was otherwise advised to return to the ED immediately if symptoms get worse. - Differential Diagnosis Ectopic ; threatened miscarriage; UTI; ovarian cyst; subchor. blee Critical care attestation.: If time is entered above; I have spent that time in minutes in the direct care of this critically ill patient, excluding procedure time. ED Disposition Clinical Impression: Threatened miscarriage in early , Acute urinary tract infection Ectopic without intrauterine Qualifiers: Location of ectopic : unspecified location Qualified Code(s): O00.90 - Unspecified ectopic without intrauterine Disposition: HOME / SELF CARE / HOMELESS Is pt being admited?: No Does the pt Need Aspirin: No Condition: Stable Instructions: Vaginal Bleeding During , First Trimester, Threatened Miscarriage, [id number], Urinary Tract Infection, Adult, [id number], Vaginal Bleeding During , First Trimester, [id number] Additional Instructions: All lab test results were reviewed and are all nonactionable except for urinary tract infection in urinalysis. Your hCG quant studies is 1671, and transvaginal ultrasound did not show any evidence of intrauterine possibly because the is too early to characterize or because of ectopic although there is no evidence of ectopic identified. Therefore maintain a complete pelvic rest with no strenuous or physical activities, follow-up with the [employer] [employer] physician in 2 to 3 days for reevaluation or return to the ED immediately if symptoms get worse. Prescriptions: Acetaminophen [Tylenol] 500 mg PO Q6HR PRN #30 tablet PRN Reason: Pain , Severe (7-10) cephALEXin [Keflex] 500 mg PO Q8HR #30 cap NIFEdipine [Nifedipine ER] 60 mg PO DAILY #30 tab Referrals: DAVID MILLAN MD [Staff Physician] - 3-5 Days Forms: Work/School Release Form(ED) Time of Disposition: 04:47 Print Language: CUBAN
[2021-07-10 05:12] VITALS: BP 186/78
== END 2021-07-10 05:37 | disposition home or self-care (01) ==
LOC: ED 00:06
DX: O20.0 Threatened abortion (principal); O23.41 Unspecified infection of urinary tract in pregnancy, first trimester; Z88.2 Allergy status to sulfonamides; Z3A.01 Less than 8 weeks gestation of pregnancy
CPT/HCPCS: 36415; 76801; 80053; 81001; 84702; 85025; 86900; 86901; 87086; 96372; 99284; J0696; J3490